=== PATIENT | female | born 1980 | race Caucasian/White ===

== ENCOUNTER 2019-06-03 06:46 | Inpatient (IN) | payer OTHER ==
[~2019-06-03] VITALS: Ht 165.1 cm; Wt 108.0 kg
[~2019-06-03 06:46] MED LIST: COLACE100 MG; NORCO 5-325 TA1 EACH PO; PRENATAL; SINGULAIR 10 MG10 M1 PO
[2019-06-03 07:01] VITALS: BP 141/92
[2019-06-03] MEDS ORDERED: [UNRECOGNIZED DRUG - OTHER] (07:04)
[2019-06-03 07:26] LABS: ABSOLUTE EOSINOPHILS 0.1 thou/uL (0.0-0.7); ABSOLUTE MONOCYTES 0.2 thou/uL (0.0-1.2); BASOPHILS 0.6 %; EOSINOPHILS 0.8 %; HEMATOCRIT 44.2 % (37.0-47.0); HEMOGLOBIN 15.1 gm/dL (12.0-15.0); LYMPHOCYTES 15.4 %; MCH 30.4 pg (26.0-34.0); MCHC 34.1 g/dL (28.0-37.0); MCV 89.1 fL (80.0-100.0); MONOCYTES 3.5 %; NUCLEATED RBCS 0 /100WBC; PLATELET COUNT* 237 thou/uL (150-400); POLYS 79.7 %; RBC 4.96 mil/uL (4.20-5.00); RDW-CV 13.2 % (10.5-14.5); WBC 6.3 thou/uL (4.0-11.0)
[2019-06-03 07:34] LABS: CALCIUM 9.2 mg/dL (8.5-10.1); CREATININE 0.7 mg/dL (0.6-1.3); POTASSIUM 3.4 mmol/L (3.5-5.1)
[2019-06-03 07:38] LABS: ALBUMIN 3.9 g/dL (3.4-5.0); TOTAL BILIRUBIN 0.6 mg/dL (<0.1-1.0); TOTAL PROTEIN 8.2 g/dL (6.4-8.2)
[2019-06-03 07:56] LABS: URINE BILIRUBIN NEGATIVE (Negative); URINE BLOOD 1+ (Negative); URINE CLARITY CLEAR; URINE COLOR YELLOW; URINE GLUCOSE-RANDOM NEGATIVE (Negative); URINE KETONES 1+ (Negative); URINE LEUKOCYTES-REFLEX NEGATIVE (Negative); URINE NITRITE-REFLEX NEGATIVE (Negative); URINE PROTEIN NEGATIVE (Negative); URINE SPECIFIC GRAVITY 1.015 (1.005-1.030)
[2019-06-03 08:05] LABS: SQUAMOUS >10 Many /LPF (0-3); URINE RBC 3-10 Few /HPF (0-2); URINE WBC-REFLEX 6-15 Few /HPF (0-5)
[2019-06-03 08:06] LABS: CASTS None Seen /LPF (None Seen); CRYSTALS None Seen /LPF (None Seen)
[2019-06-03 10:24] VITALS: BP 114/73
[2019-06-03 10:30] VITALS: BP 117/74
[2019-06-03] MEDS ORDERED: AMITIZA 24 MCG24 MC1 PO (11:10)
[2019-06-03] MEDS ORDERED: XYZAL5 MG PO (11:12)
[2019-06-03 20:00] VITALS: BP 119/78
[2019-06-03 23:10] LABS: GLYCOHEMOGLOBIN (HGB A1C) 4.9 % (4.8-5.6)
[2019-06-04 04:49] LABS: HEMATOCRIT 35.9 % (37.0-47.0); MCH 30.3 pg (26.0-34.0); MCHC 33.4 g/dL (28.0-37.0); MCV 90.7 fL (80.0-100.0); MPV 10.6 fl. (7.2-11.1); RBC 3.96 mil/uL (4.20-5.00); RDW-CV 13.2 % (10.5-14.5); WBC 4.5 thou/uL (4.0-11.0)
[2019-06-04 05:04] LABS: CALCIUM 8.5 mg/dL (8.5-10.1); CREATININE 0.7 mg/dL (0.6-1.3); MAGNESIUM 1.7 mg/dL (1.8-2.4); POTASSIUM 3.4 mmol/L (3.5-5.1)
[2019-06-04 07:50] VITALS: BP 135/78
--- NOTE | 2019-06-04 10:59 | CON ---
[facility], [place] [address] [place] [address] CONSULTATION Name: OVIDIO MARTIN Room: [address] [place] .R.#: [id number] Admission: 06/03/19 Attend Phys: Brennan Gonzalez MD Discharge: Date of : 80 Report #: [id number] THIS REPORT FOR: //name// CC: Brennan Suero HISTORY OF PRESENT ILLNESS: This is a pleasant 38-year-old female with no significant past medical history who is presenting for evaluation of acute onset lower abdominal pain. The patient reports she was in her usual state of health until last night at around 1:30 a.m., she started experiencing excruciating lower abdominal pain. The patient reports the pain is crampy and localized to the lower abdomen, nonradiating. The patient denies any bowel movements during that time, but reports some nausea during the pain. She denies passing any blood in her stools and denies similar episodes in the past. The pain has since subsided, but has not completely resolved. The patient reports subjective sensation of fever and chills at night when the pain began, but these to have subsided. PAST MEDICAL HISTORY: The patient has several allergies. PAST SURGICAL HISTORY: The patient had sinus surgery. SOCIAL HISTORY: The patient denies smoking, alcohol or recreational drug use. FAMILY HISTORY: There is no significant family history of colorectal cancer or Jacobo related neoplasia. REVIEW OF SYSTEMS: A comprehensive 10-point review of systems is negative except for what was mentioned in the HPI. PHYSICAL EXAMINATION: GENERAL: The patient is alert, awake, oriented x 3. HEENT: Pupils are equal, round, reactive to light and accommodation. Mucous membranes are moist. There is no congestion. LUNGS: Clear to auscultation bilaterally. CARDIOVASCULAR: Rate and rhythm regular, S1, S2 present. ABDOMEN: Soft. There is mild tenderness to deep palpation in the suprapubic region. EXTREMITIES: Warm, well perfused. There is no edema. LABORATORY DATA: Hemoglobin 15.1, hematocrit 44.2, WBC count 6.3, platelet count 237. Sodium 137, potassium 3.4, chloride 100, bicarbonate 24, BUN 4, creatinine 0.7. Total bilirubin 0.6, AST 15, ALT 25, alkaline phosphatase 112, lipase 78. CT abdomen and pelvis, this demonstrates diffuse colitis with evacuation of colon and colon wall thickening and increased mucosal enhancement. Small amount of ascites seen in the deep pelvic region, no enhancing corpus luteum cyst to suggest fluid is less [place] [address] CONSULTATION Name: MARIOOVIDIO BAUER Vahid Room: [address] [place] [facility]#: [id number] Admission: 06/03/19 Attend Phys: Brennan Gonzalez MD Discharge: Date of : 80 Report #: [id number] ASSESSMENT AND PLAN: Pleasant 38-year-old female presenting with severe abdominal pain, found to have colitis on CT scan. We will proceed with colonoscopy tomorrow and make further recommendations based on results of the colonoscopy. <ELECTRONICALLY SIGNED> By: Pernell Amado MD 06/04/19 1059 [id number] Amado MD /nt
[2019-06-04 11:20] VITALS: BP 144/92
[2019-06-04 16:27] VITALS: BP 111/84
[2019-06-04 19:30] VITALS: BP 142/93
[2019-06-05 04:10] LABS: MAGNESIUM 1.9 mg/dL (1.8-2.4)
[2019-06-05 04:17] LABS: POTASSIUM 4.8 mmol/L (3.5-5.1)
[2019-06-05 06:00] VITALS: BP 132/90; BP 134/93; BP 137/92
[2019-06-05] MEDS ORDERED: CIPRO500 MG PO (11:16)
[2019-06-05] MEDS ORDERED: FLONASE 0.05%50 MCG NASAL (11:16)
[2019-06-05] MEDS ORDERED: FLAGYL375 MG PO (11:17)
[2019-06-05 11:19] VITALS: BP 132/90
[2019-06-05 11:46] VITALS: BP 132/90
== END 2019-06-05 11:45 | disposition home or self-care (01) | DRG 372 ==
LOC: M.ERS 06:46 → M.TBA-ER 08:59 → M.ORTHSURG 08:59
PROVIDERS: Emergency Medicine; ADMIT Internal Medicine
PROC: 0DJD8ZZ Inspection of Lower Intestinal Tract, Via Natural or Artificial Opening Endoscopic (ICD-10-PCS; principal; 2019-06-04)
DX: A04.9 Bacterial intestinal infection, unspecified (principal); R65.10 Systemic inflammatory response syndrome (SIRS) of non-infectious origin without acute organ dysfunction; N39.0 Urinary tract infection, site not specified; K56.600 Partial intestinal obstruction, unspecified as to cause; E87.6 Hypokalemia; K64.4 Residual hemorrhoidal skin tags; R73.9 Hyperglycemia, unspecified; E66.9 Obesity, unspecified; K59.09 Other constipation; J45.909 Unspecified asthma, uncomplicated; J32.9 Chronic sinusitis, unspecified; Z88.5 Allergy status to narcotic agent; Z88.8 Allergy status to other drugs, medicaments and biological substances; Z91.018 Allergy to other foods; Z83.79 Family history of other diseases of the digestive system; Z68.39 Body mass index [BMI] 39.0-39.9, adult